=== PATIENT | male | born 1960 | race Caucasian/White ===

== ENCOUNTER 2019-09-10 16:11 | Emergency (ER) | payer BC ==
[~2019-09-10] VITALS: Ht 182.9 cm; Wt 90.9 kg
[~2019-09-10 16:11] MED LIST: ACHYD1T PO; ATOR40TA PO; CEPH500C PO; CLD600T; GLUC1CAP37; GLUC1TAB; HYDR-3714 PO; MTP100TCR PO; NFPRILOC40; OMEG200L PO; OMEP20CA6 PO; OMEP40CA36 PO; OMG1KC PO; ONDAN4ODT PO; PROP1TAB77 PO; TEST200V3 TOP; TRAM50TA2 PO
[2019-09-10 16:47] LABS: BILIRUBIN,URINE NEGATIVE (NEGATIVE); CLARITY,URINE CLEAR; COLOR,URINE YELLOW; GLUCOSE, URINE (UA) NEGATIVE (NEGATIVE); KETONES,URINE NEGATIVE (NEGATIVE); LEUKOCYTE ESTERASE ,URINE NEGATIVE (NEGATIVE); NITRITE,URINE NEGATIVE (NEGATIVE); PROTEIN,URINE NEGATIVE (NEGATIVE)
[2019-09-10 16:51] LABS: BASOPHILS % (AUTO) 0 % (0-10); EOSINOPHILS # (AUTO) 0.1 10^3/uL (0.0-0.3); EOSINOPHILS % (AUTO) 2 % (0-10); HEMATOCRIT 47 % (40-54); HEMOGLOBIN 15.5 G/DL (13.3-17.7); LYMPHOCYTES # (AUTO) 1.1 X 10^3 (1.0-4.0); LYMPHOCYTES % (AUTO) 15 % (12-44); MEAN CORPUSCULAR HEMOGLOBIN 27 PG (25-34); MEAN CORPUSCULAR HGB CONC 33 G/DL (32-36); MEAN CORPUSCULAR VOLUME 81 FL (80-99); MEAN PLATELET VOLUME 10.1 FL (7.4-10.4); MONOCYTES # (AUTO) 0.8 X 10^3 (0.0-1.0); MONOCYTES % (AUTO) 12 % (0-12); NEUTROPHILS # (AUTO) 4.9 X 10^3 (1.8-7.8); NEUTROPHILS % (AUTO) 71 % (42-75); PLATELET COUNT 201 10^3/uL (130-400); RED CELL DISTRIBUTION WIDTH 15.4 % (10.0-14.5); WHITE BLOOD COUNT 6.9 10^3/uL (4.3-11.0)
--- NOTE | 2019-09-10 16:55 | ED Neurological Problem ---
General Chief Complaint: Neurological Problems Stated Complaint: CONFUSION Nursing Triage Note: Pt amb to triage with c/o sudden onset of confusion. Pt reports @ approx 1500 on this day, while @ work, symptoms began. Pt reports he couldn't remember the current time, day, or year. Pt reports pesticides were sprayed in his office just prior to onset of symptoms. Pt reports symptoms of dizziness and disoriention. Pt states, "its like i've lost a day or two." A&OX3. 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 Presentation today is for memory loss that was transient. Sometime between 2:30 and 3 PM he developed some memory loss. He had his shop being sprayed for insects, the gentleman who was spraying asked him about his dump truck that he had for sale and the patient states that he couldn't remember the engine type of it or the year the dump truck was build. He also didn't recall what day it was. 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 He states it didn't seem to make sense to him. Unclear whether the survey truly didn't make sense (which is a possibility) or whether he was having trouble interpreting the written word. He denies any numbness or weakness of one side of his body or another or difficulty with speech. No history of this. His came home from work after talking to him on the phone and brought him to the emergency room here to be evaluated. At this time other than believing it was about 1:30 when in fact it's 4:30, his memory is intact, well- appearing alert and oriented. History of renal cell carcinoma in 2010 without known recurrence of that. States he feels like he lost a day or 2. Denies headache or nausea or vomiting. Timing/Duration: 1-3 hours Severity: moderate Associated Symptoms: confusion Allergies and Home Medications Allergies Coded Allergies: hydrocodone (Verified Allergy, Mild, 04/01/13) erythromycin base (Verified Allergy, Unknown, 04/01/13) nabumetone (Verified Allergy, Unknown, 04/01/13) Home Medications Hydrocodone Bit/Acetaminophen 1 Ea Tab, 1 EA PO Q4H PRN, (Reported) Metoprolol Succinate 100 Mg Tab.sr.24h, 100 MG PO DAILY, (Reported) Dike 3/Dha/Epa/Other Om3/D3 200 Ml Liquid, 1 TBS PO DAILY, (Reported) Omeprazole 40 Mg Capsule.dr, 40 MG PO DAILY, (Reported) Testosterone Cypionate 200 Mg/1 Ml Vial, 100 MG TOP BID, (Reported) Tramadol Hcl 50 Mg Tablet, 50 MG PO Q6H PRN, (Reported) Patient Home Medication List Home Medication List Reviewed: Yes Review of Systems Review of Systems Constitutional: see HPI; No chills Eyes: No Symptoms Reported Ears, Nose, Mouth, Throat: no symptoms reported Respiratory: no symptoms reported Cardiovascular: no symptoms reported Genitourinary: no symptoms reported Musculoskeletal: no symptoms reported Skin: no symptoms reported Psychiatric/Neurological: Cognitive Dysfunction Endocrine: No Symptoms Reported Past Jxsvxkt-Rnifes-Hpuyco Hx Patient Social History Alcohol Use: Regular Use Number of Drinks Today: 0 Alcohol Beverage of Choice: Beer, Graves Recreational Drug Use: No Smoking Status: Never a Smoker 2nd Hand Smoke Exposure: No Recent Foreign Travel: No Contact w/Someone Who Travel: No Recent Infectious Disease Expo: No Recent Hopitalizations: Yes Immunizations Up To Date Tetanus Booster (TDap): Less than 5yrs PED Vaccines UTD: Yes Past Medical History Surgeries: Yes (X6 KNEE,KNEE X2,X3 ARM SURG,T&A,LASIK,TESTICLE REMOVED, PARTIAL NEPHRECTOMY) Respiratory: No Cardiac: Yes Neurological: No Reproductive Disorders: Yes (TESTICULAR CANCER-1991) Sexually Transmitted Disease: No HIV/AIDS: No Gastrointestinal: Yes Gastroesophageal Reflux Musculoskeletal: Yes (LOW CALCIUM) Arthritis Endocrine: No Loss of Vision: Denies Hearing Impairment: Denies Cancer: Yes Testicular Psychosocial: No Integumentary: Yes Eczema Blood Disorders: No Adverse Reaction/Blood Tranf: No Physical Exam Vital Signs Vital Signs - First Documented 09/10/19 16:17 Temp 36.5 Pulse 60 Resp 18 B/P (MAP) 166/96 (119) Pulse Ox 98 O2 Delivery Room Air Capillary Refill : Less Than 3 Seconds Height, Weight, BMI Height: '" Weight: lbs. oz. kg; 27.00 BMI Method:Stated General Appearance: WD/WN, no apparent distress HEENT: PERRL/EOMI, normal ENT inspection, TMs normal Neck: non-tender Respiratory: no respiratory distress, no accessory muscle use Cardiovascular: regular rate, rhythm, no murmur Gastrointestinal: normal bowel sounds, non tender, soft Extremities: normal range of motion, non-tender Neurologic/Psychiatric: alert, normal mood/affect, oriented x 3 Crainal Nerves: normal hearing, normal speech, PERRL Coordination/Gait: normal finger to nose, normal gait Motor/Sensory: no motor deficit, no sensory deficit Skin: normal color, warm/dry Stroke Onset of Symptoms Date of Onset of Symptoms: Sep 10, 2019 Time of Symptom Onset: 15:00 Onset of Symptoms: Yes NIH Stroke Scale Assessment Level of Consciousness: 0=Alert (0), Level of Consciousness-Questions: 0=Answers both month/age (0), LOC Commands: 0=Performs both tasks (0), Visual Dutta: 0=No visual loss (0), Facial Movement (Facial Paresis): 0=Normal symmetrical mnt (0), Motor Function-Arms Right: 0=No drift (0), Motor Function-Arms Left: 0=No drift (0), Motor Function-Legs Right: 0=No drift (0), Motor Function-Legs Left: 0=No drift (0), Limb Ataxia: 0=Absent (0), Sensory: 0=Normal:no loss (0), Best Language: 0=No aphasia (0), Dysarthria: 0=Normal (0), Extinction & Inattention: 0=No abnormality (0), Total: 0 Stroke Thrombolytic Exclusion Age 18 or Over: Yes Progress/Results/Core Measures Results/Orders Lab Results Laboratory Tests Test 09/10/19 16:24 09/10/19 16:34 09/10/19 16:48 Range/Units Urine Color YELLOW Urine Clarity CLEAR Urine pH 6.0 5-9 Urine Specific [place] <=1.005 1.016-1.022 Urine Protein NEGATIVE NEGATIVE Urine Glucose (UA) NEGATIVE NEGATIVE Urine Ketones NEGATIVE NEGATIVE Urine Nitrite NEGATIVE NEGATIVE Urine Bilirubin NEGATIVE NEGATIVE Urine Urobilinogen 0.2 < = 1.0 MG/DL Urine Leukocyte Esterase NEGATIVE NEGATIVE Urine RBC (Auto) TRACE-I NEGATIVE Urine RBC RARE /HPF Urine WBC NONE /HPF Urine Squamous Epithelial Cells 0-2 /HPF Urine Crystals NONE /LPF Urine Bacteria NEGATIVE /HPF Urine Casts NONE /LPF Urine Mucus NEGATIVE /LPF Urine Culture Indicated NO White Blood Count 6.9 4.3-11.0 10^3/uL Red Blood Count 5.84 4.35-5.85 10^6/uL Hemoglobin 15.5 13.3-17.7 G/DL Hematocrit 47 40-54 % Mean Corpuscular Volume 81 80-99 FL Mean Corpuscular Hemoglobin 27 25-34 PG Mean Corpuscular Hemoglobin Concent 33 32-36 G/DL Red Cell Distribution Width 15.4 H 10.0-14.5 % Platelet Count 201 130-400 10^3/uL Mean Platelet Volume 10.1 7.4-10.4 FL Neutrophils (%) (Auto) 71 42-75 % Lymphocytes (%) (Auto) 15 12-44 % Monocytes (%) (Auto) 12 0-12 % Eosinophils (%) (Auto) 2 0-10 % Basophils (%) (Auto) 0 0-10 % Neutrophils # (Auto) 4.9 1.8-7.8 X 10^3 Lymphocytes # (Auto) 1.1 1.0-4.0 X 10^3 Monocytes # (Auto) 0.8 0.0-1.0 X 10^3 Eosinophils # (Auto) 0.1 0.0-0.3 10^3/uL Basophils # (Auto) 0.0 0.0-0.1 10^3/uL Prothrombin Time 14.0 12.2-14.7 SEC INR Comment 1.0 0.8-1.4 Activated Partial Thromboplast Time 28 24-35 SEC D-Dimer 0.44 0.00-0.49 UG/ML Sodium Level 139 135-145 MMOL/L Potassium Level 4.1 3.6-5.0 MMOL/L Chloride Level 105 98-107 MMOL/L Carbon Dioxide Level 23 21-32 MMOL/L Anion Gap 11 5-14 MMOL/L Blood Urea Nitrogen 16 7-18 MG/DL Creatinine 1.41 H 0.60-1.30 MG/DL Estimat Glomerular Filtration Rate 51 BUN/Creatinine Ratio 11 Glucose Level 97 70-105 MG/DL Calcium Level 9.2 8.5-10.1 MG/DL Corrected Calcium 8.9 8.5-10.1 MG/DL Total Bilirubin 0.9 0.1-1.0 MG/DL Aspartate Amino Transf (AST/SGOT) 21 5-34 U/L Alanine Aminotransferase (ALT/SGPT) 25 0-55 U/L Alkaline Phosphatase 74 40-136 U/L Troponin I < 0.028 <0.028 NG/ML Total Protein 7.1 6.4-8.2 GM/DL Albumin 4.4 3.2-4.5 GM/DL Glucometer 93 70-110 MG/DL My Orders Orders - WENCESLAO ORTIZ APRN Cbc With Automated Diff (09/10/19 16:41) Protime With Inr (09/10/19 16:41) Partial Thromboplastin Time (09/10/19 16:41) Comprehensive Metabolic Panel (09/10/19 16:41) Fibrin Degradation Products (09/10/19 16:41) Troponin I (09/10/19 16:41) Ua Culture If Indicated (09/10/19 16:41) Chest 1 View, Ap/Pa Only (09/10/19 16:41) Ekg Tracing (09/10/19 16:41) Nothing By Mouth (09/11/19 Breakfast) Accucheck Stat ONCE (09/10/19 16:41) Ed Iv/Invasive Line Start (09/10/19 16:41) Ed Iv/Invasive Line Start (09/10/19 16:41) Vital Signs Stroke Patient Q15M (09/10/19 16:41) Ct Head Wo-R/O Stroke (09/10/19 16:41) O2 (09/10/19 16:41) Intake & Output 06,14,22 (09/10/19 16:41) Monitor-Rhythm Ecg Trace Only (09/10/19 16:41) Dysphagia Screening Tool (09/10/19 16:41) Post Thrombolytic Adminstratio (09/10/19 16:41) Lipid Panel (09/11/19 06:00) Ct Angio Head/Neck (09/10/19 16:41) I-Stat Bedside Testing (09/10/19 16:41) Ns Iv 1000 Ml (Sodium Chloride 0.9%) (09/10/19 17:30) Iohexol Injection (Omnipaque 350 Mg/Ml 1 (09/10/19 17:30) Received Contrast (Hold Metformin- Contr (09/10/19 17:30) Ns (Ivpb) (Sodium Chloride 0.9% Ivpb Bag (09/10/19 17:30) Medications Given in ED Current Medications Medications Dose Ordered Sig/Arnoldo Route Start Time Stop Time Status Last Admin Dose Admin Iohexol 100 ml ONCE ONCE IV 09/10/19 17:30 09/10/19 17:31 DC 09/10/19 17:43 75 ML Sodium Chloride 100 ml ONCE ONCE IV 09/10/19 17:30 09/10/19 17:31 DC 09/10/19 17:44 80 ML Vital Signs/I&O 09/10/19 16:17 Temp 36.5 Pulse 60 Resp 18 B/P (MAP) 166/96 (119) Pulse Ox 98 O2 Delivery Room Air Blood Pressure Mean: 119 POS Progress Progress Note : Progress Note NAME: TIO PERALTA [facility] REC#: [id number] PT STATUS: REG ER : 1960 PHYSICIAN: WENCESLAO ORTIZ APRN ADMIT DATE: 09/10/19/ER Signed POSDate of Exam:09/10/19 CHEST 1 VIEW, AP/PA ONLY EXAMINATION: Chest radiograph, portable AP view. DATE: 09/10/2019 5:06 PM hours. INDICATION: 59-year-old male, sudden onset memory loss. COMPARISON: April 01, 2013. FINDINGS: Heart size and mediastinal contours are unremarkable. There is no identified pneumothorax. There is no large pleural effusion. There is no identified focal airspace consolidation. IMPRESSION: No identified acute cardiopulmonary abnormality. Dictated by: Dictated on workstation # [id number] Dict: 09/10/191707 Trans: 09/10/191721 [facility] [id number] Interpreted by: ALVINO GOTTLIEB MD Electronically signed by: ALVINO GOTTLIEB MD 09/10/191721 Diagnostic Imaging Diagonstic Imaging: CT Comments NAME: TIO PERALTA [facility] REC#: [id number] PT STATUS: REG ER : 1960 PHYSICIAN: WENCESLAO ORTIZ APRN ADMIT DATE: 09/10/19/ER Draft POSDate of Exam:09/10/19 CT HEAD WO-R/O STROKE PROCEDURE: CT head wo r/o stroke. TECHNIQUE: Multiple contiguous axial images were obtained through the brain without the use of intravenous contrast. Auto Exposure Controls were utilized during the CT exam to meet ALARA standards for radiation dose reduction. INDICATION: Sudden memory loss. Evaluate for stroke. COMPARISON: No comparison available. FINDINGS: There are no CT findings of acute intracranial hemorrhage. There is no intracranial mass effect or shift. There is no hydrocephalus. There is no abnormal extra-axial fluid collection. There are no CT findings of territorial loss of cortés-white differentiation or evidence of abnormal hypodensity within the basal ganglia or susanna. No hyperdense blood vessel evident. Mastoids appear clear. Paranasal sinuses are clear where visualized. Orbital contents are unremarkable. There is no calvarial abnormality. IMPRESSION: 1. No CT evidence of an acute intracranial abnormality. There are no findings of loss of cortés-white differentiation. There is no hemorrhage, mass effect or hydrocephalus. No hyperdense blood vessel evident. Dictated on workstation # [id number] Dict: 09/10/19 1754 Trans: 09/10/19 1800 TS [id number] Interpreted by: JUN WHITTINGTON MD Electronically signed by: NAME: TIO PERALTA [facility] REC#: [id number] PT STATUS: REG ER : 1960 PHYSICIAN: WENCESLAO ORTIZ APRN ADMIT DATE: 09/10/19/ER Draft POSDate of Exam:09/10/19 CT ANGIO HEAD/NECK PROCEDURE: CT angiography of the head and CT angiography of the neck with and without contrast. TECHNIQUE: Contiguous noncontrast images were obtained from the skull base through the vertex. After intravenous contrast administration, helical CT angiography of the neck was performed. Source data was reformatted into 3D MIP projections. Delayed post contrast acquisition was also obtained. Auto Exposure Controls were utilized during the CT exam to meet ALARA standards for radiation dose reduction. DATE: September 10, 2019. INDICATION: 59-year-old male, sudden memory loss. Evaluation for stroke. COMPARISON: CT head without contrast September 10, 2019. FINDINGS: The left common carotid artery is patent. The left internal carotid artery is patent. The left middle cerebral artery is patent. The left anterior cerebral artery is patent. There is a patent anterior communicating artery. The right anterior cerebral artery is patent. The right middle cerebral artery is patent. The right internal carotid artery is patent. The right common carotid artery is patent. There is conventional origin of the left vertebral artery. The left vertebral artery is patent. The basilar artery is patent. The right and left posterior inferior cerebellar arteries are patent. Bilateral posterior cerebral arteries are patent. There are patent bilateral posterior communicating arteries. The right vertebral artery is patent and conventional in origin. There is no identified aneurysm. The visualized portions of the lungs are clear. There are degenerative changes of the spine. The right frontal sinus is hypoplastic. There is no identified acute bony abnormality. IMPRESSION: Patent arterial head and neck vasculature without high-grade stenosis, occlusion, dissection, or aneurysm. Dictated on workstation # [id number] Dict: 09/10/19 1803 Trans: 09/10/19 1856 [facility] [id number] Interpreted by: ALVINO GOTTLIEB MD Electronically signed by: Departure Impression Primary Impression: Transient amnesia Additional Impression: TIA (transient ischemic attack) Disposition: 01 HOME, SELF-CARE Condition: Stable Departure-Patient Inst. Decision time for Depature: 19:06 Referrals: EJ CAM MD (PCP/Family) Primary Care Physician Patient Instructions: Amnesia, Transient Ischemic Attack (DC) Add. Discharge Instructions: 1. Return to ER for any concerns 2. Hard to say whether your symptoms are from a TIA or orther global amnesia. Follow up with Dr Cam next week. If you dont alreay, then begin taking a full dose aspirin daily. All discharge instructions reviewed with patient and/or family. Voiced under standing. Copy Copies To 1: SPENCER BERGER MD; EJ CAM MD, PETER J APRN Sep 10, 2019 16:55 POS
[2019-09-10 16:56] LABS: BACTERIA,URINE NEGATIVE /HPF; RBC,URINE RARE /HPF; SQUAMOUS EPITHELIAL CELL,UR 0-2 /HPF
[2019-09-10 17:04] LABS: ALANINE AMINOTRANSFERASE 25 U/L (0-55); ALBUMIN 4.4 GM/DL (3.2-4.5); ALKALINE PHOSPHATASE 74 U/L (40-136); BILIRUBIN,TOTAL 0.9 MG/DL (0.1-1.0); BUN/CREATININE RATIO 11; CALCIUM 9.2 MG/DL (8.5-10.1); CARBON DIOXIDE 23 MMOL/L (21-32); CHLORIDE 105 MMOL/L (98-107); CREATININE SERUM 1.41 MG/DL (0.60-1.30); GFR ESTIMATED 51; GLUCOSE 97 MG/DL (70-105); POTASSIUM 4.1 MMOL/L (3.6-5.0); SODIUM 139 MMOL/L (135-145); TOTAL PROTEIN 7.1 GM/DL (6.4-8.2)
--- NOTE | 2019-09-10 17:10 | Diagnostic Imaging Report ---
EXAMINATION: Chest radiograph, portable AP view. DATE: 09/10/2019 5:06 PM hours. INDICATION: 59-year-old male, sudden onset memory loss. COMPARISON: April 01, 2013. FINDINGS: Heart size and mediastinal contours are unremarkable. There is no identified pneumothorax. There is no large pleural effusion. There is no identified focal airspace consolidation. IMPRESSION: No identified acute cardiopulmonary abnormality. Dictated by: Dictated on workstation # [id number]
--- NOTE | 2019-09-10 17:14 | NUR ---
THE PT WAS GIVEN SOME WATER TO DRINK WITHOUT ANY DIFFICULTY.
[2019-09-10 17:23] LABS: FIBRIN DEGRADATION PRODUCTS 0.44 UG/ML (0.00-0.49)
[2019-09-10] MEDS ORDERED: IOHEXOL 350 MG/ML 100 ML (OMNIPAQUE 350) VIAL IV ONE (17:30)
[2019-09-10] MEDS ORDERED: NS 100 ML (IVPB) BAG IV ONE (17:30)
[2019-09-10] MEDS ORDERED: HOLD METFORMIN - RECEIVED CONTRAST 20 ML VIAL IV SCH (17:30)
[2019-09-10] MEDS ORDERED: NS IV 1000 ML 1,000 ML IV SCH (17:30)
--- NOTE | 2019-09-10 18:00 | Diagnostic Imaging Report ---
PROCEDURE: CT head wo r/o stroke. TECHNIQUE: Multiple contiguous axial images were obtained through the brain without the use of intravenous contrast. Auto Exposure Controls were utilized during the CT exam to meet ALARA standards for radiation dose reduction. INDICATION: Sudden memory loss. Evaluate for stroke. COMPARISON: No comparison available. FINDINGS: There are no CT findings of acute intracranial hemorrhage. There is no intracranial mass effect or shift. There is no hydrocephalus. There is no abnormal extra-axial fluid collection. There are no CT findings of territorial loss of cortés-white differentiation or evidence of abnormal hypodensity within the basal ganglia or susanna. No hyperdense blood vessel evident. Mastoids appear clear. Paranasal sinuses are clear where visualized. Orbital contents are unremarkable. There is no calvarial abnormality. IMPRESSION: 1. No CT evidence of an acute intracranial abnormality. There are no findings of loss of cortés-white differentiation. There is no hemorrhage, mass effect or hydrocephalus. No hyperdense blood vessel evident. Dictated by: Dictated on workstation # [id number]
--- NOTE | 2019-09-10 18:56 | Diagnostic Imaging Report ---
PROCEDURE: CT angiography of the head and CT angiography of the neck with and without contrast. TECHNIQUE: Contiguous noncontrast images were obtained from the skull base through the vertex. After intravenous contrast administration, helical CT angiography of the neck was performed. Source data was reformatted into 3D MIP projections. Delayed post contrast acquisition was also obtained. Auto Exposure Controls were utilized during the CT exam to meet ALARA standards for radiation dose reduction. DATE: September 10, 2019. INDICATION: 59-year-old male, sudden memory loss. Evaluation for stroke. COMPARISON: CT head without contrast September 10, 2019. FINDINGS: The left common carotid artery is patent. The left internal carotid artery is patent. The left middle cerebral artery is patent. The left anterior cerebral artery is patent. There is a patent anterior communicating artery. The right anterior cerebral artery is patent. The right middle cerebral artery is patent. The right internal carotid artery is patent. The right common carotid artery is patent. There is conventional origin of the left vertebral artery. The left vertebral artery is patent. The basilar artery is patent. The right and left posterior inferior cerebellar arteries are patent. Bilateral posterior cerebral arteries are patent. There are patent bilateral posterior communicating arteries. The right vertebral artery is patent and conventional in origin. There is no identified aneurysm. The visualized portions of the lungs are clear. There are degenerative changes of the spine. The right frontal sinus is hypoplastic. There is no identified acute bony abnormality. IMPRESSION: Patent arterial head and neck vasculature without high-grade stenosis, occlusion, dissection, or aneurysm. Dictated by: Dictated on workstation # [id number]
[2019-09-10 19:47] VITALS: BP 152/90
== END 2019-09-10 19:49 | disposition home or self-care (01) ==
LOC: EDUNIT# 16:11 → ER 16:13
DX: G45.4 Transient global amnesia (principal); G45.8 Other transient cerebral ischemic attacks and related syndromes; K21.9 Gastro-esophageal reflux disease without esophagitis; Z88.1 Allergy status to other antibiotic agents; Z88.8 Allergy status to other drugs, medicaments and biological substances; Z90.5 Acquired absence of kidney; Z80.43 Family history of malignant neoplasm of testis
CPT/HCPCS: 36415; 70450; 70496; 70498; 71045; 80053; 81000; 82962; 84484; 85025; 85379; 85610; 85730; 93005; 93041

== ENCOUNTER → 2020-03-09 | Outpatient (CLI) | payer BC ==
--- NOTE | 2020-03-09 10:35 | Diagnostic Imaging Report ---
INDICATION: Fall with left rib pain. COMPARISON: 04/01/2013 chest x-ray. FINDINGS: PA and lateral views. The lungs are well-aerated and clear. No pneumothorax or pleural effusion. The heart is not enlarged. Clavicles are intact. No evidence of rib fracture. IMPRESSION: Normal PA and lateral chest. Dictated by: Dictated on workstation # [id number]
--- NOTE | 2020-03-09 10:36 | Diagnostic Imaging Report ---
INDICATION: Fall with left rib pain. FINDINGS: Three views. There is a nondisplaced fracture of the distal left sixth rib. No other rib fractures are demonstrated. IMPRESSION: Nondisplaced distal left sixth rib fracture. Dictated by: Dictated on workstation # [id number]
== END ==
LOC: RAD 09:55
PROVIDERS: ATTEND Internal Medicine
DX: S22.32XA Fracture of one rib, left side, initial encounter for closed fracture (principal); W19.XXXA Unspecified fall, initial encounter
CPT/HCPCS: 71046; 71100

== ENCOUNTER → 2020-12-02 | Outpatient (CLI) | payer BC ==
--- NOTE | 2020-12-02 12:33 | Diagnostic Imaging Report ---
INDICATION: ENLARGED THYROID TECHNIQUE: Grayscale sonographic images of the thyroid gland. CORRELATION STUDY: 04/03/2016 FINDINGS: RIGHT LOBE: 5.3 x 2.0 x 1.6 cm. (Previously 5.0 x 1.8 x 1.6 cm) There is normal echotexture about the right lobe. LEFT LOBE: 5.0 x 2.1 x 1.8 cm. (Previously 5.0 x 2.0 x 1.3 cm) 2 very small 2-3 mm cystic nodules are present within the left lobe. No concerning dominant mass. Isthmus appears unremarkable. IMPRESSION: Generally stable appearance of a mildly enlarged thyroid gland. (Normal gland size: 4-5 x 2 x 2 cm) Dictated by: Dictated on workstation # [id number]
== END ==
LOC: RAD 10:07
PROVIDERS: ATTEND Internal Medicine
DX: E04.9 Nontoxic goiter, unspecified (principal)
CPT/HCPCS: 76536